=== PATIENT | male | born 1970 | race Caucasian/White ===

== ENCOUNTER 2024-03-19 11:51 | Outpatient (REF) | payer BC, SELFPAY | END 2024-03-19 11:52 | disposition home or self-care (01) | LOC: HO.BBR 11:51 | PROVIDERS: PCP Internal Medicine; Visit Provider Internal Medicine Gastroenterology | DX: Z13.89 Encounter for screening for other disorder (principal) ==

== ENCOUNTER 2024-03-26 15:29 | Outpatient (REF) | payer BC, SELFPAY | END 2024-03-26 15:30 | disposition home or self-care (01) | LOC: HO.BBR 15:29 | PROVIDERS: PCP Internal Medicine; Visit Provider Internal Medicine Gastroenterology | DX: Z13.89 Encounter for screening for other disorder (principal) ==

== ENCOUNTER 2024-04-02 15:17 | Outpatient (REF) | payer BC, SELFPAY ==
--- OUTSIDE RECORDS SUMMARY | 2024-04-02 19:07 | XMS_ITS | Encounter Summary ---
Author Organization [facility] Address [address] [place] [address] Care Team Providers Care Air Quality Chemist Name Role Phone Vickie Monte Primary Care Provider Encounter Details Date Type Department Care Team (Late st Contact Info) Description 03/19/2024 Telephone Gastroenterology - [address] [place] [phone] Zandra Lay MA Social History Tobacco Use Types Packs/Day Years Used Date Smoking Tobacco: Never Smokeless Tobacco: Never Alcohol Use Standard Drinks/Week Comments Yes 0 (1 standard drink = 0.6 oz pur e alcohol) occasional Sex and Gender Information Value Date Recorded Sex Assigned at Not on file Gender Identity Not on file Sexual Orientation Not on file Job Start Date Occupation Industry Not on file Not on file Not on file documented as of this encounter Progress Notes * Zandra Lay MA - 03/19/2024 10:55 AM EST [facility] BLOOD BANK NEEDS GENETIC TESTING RESULTS FAX# [phone] PHONE# [phone] APPT TODAY AT NOON AND WHAT DOES Q O W ? MEAN As a freqency? documented in this encounter Plan of Treatment Upcoming Encounters Date Type Department Care Team (Late st Contact Info) Description 04/16/2024 3:20 PM EST Office Visit Gastroenterology - [address] [place] [phone] Karla Leung PA [address] [place] [address] documented as of this encounter Visit Diagnoses Not on filedocumented in this encounter Care Teams Air Quality Chemist Relationship Specialty Start Date End Date Vickie Monte PA [facility]. [address] [place] [address] PCP - General Physician System Operator 01/29/24 documented as of this encounter
--- OUTSIDE RECORDS SUMMARY | 2024-04-02 19:07 | XMS_ITS | Encounter Summary ---
Author Organization [facility] Address [address] [place] [address] Care Team Providers Care Binding End Stitcher Name Role Phone Vickie Monte Primary Care Provider Encounter Details Date Type Department Care Team (Late st Contact Info) Description 03/17/2024 Telephone Gastroenterology - [address] [place] [phone] Mehdi Blanc MD [address] [place] [address] Social History Tobacco Use Types Packs/Day Years [...] Progress Notes * Zandra Lay MA - 03/18/2024 9:45 AM EST [facility] blood bank says the freqency is missing,they can't write it in.[email or web address] appt tomarrow phone [phone] * Ángela Dorantes - 03/17/2024 3:59 PM EST PT SCHEDULED FOR THERAPEUTIC PHLEBOTOMY 03/19/24, [facility] NEEDS ORDER FIXED AND FAXED BACK OVER, IT'S MISSING THE DATE. documented in this encounter Plan of Treatment Upcoming Encounters Date Type Department Care Team (Late st Contact Info) Description 04/16/2024 3:20 PM EST Office Visit Gastroenterology - [address] [place] [address] Karla Leung PA [address] [place] [address] documented as of this encounter Visit Diagnoses Not on filedocumented in this encounter Care Teams Binding End Stitcher Relationship Specialty Start Date End Date Vickie Monte PA [facility] [address] [place] [address] PCP - General Physician Electric Meter Setter 01/29/24 documented as of this encounter
--- OUTSIDE RECORDS SUMMARY | 2024-04-02 19:07 | XMS_ITS | Clinical Summary ---
Author Organization [facility] Address [address] [place] [address] Care Team Providers Care Accounting Tutor Name Role Phone Larry Marin MD Primary Care Provider [phone] Allergies No known active allergies Medications Medication Sig Dispensed Refills Start Date End Date Status fluticasone (FLONASE) 50 MCG/ACT nasal spray spray/apply 1 spray in each nostril daily. 0 Active Multiple Vitamins-Minerals (MULTIVITAMIN ADULT PO) Take by mouth daily. 0 Active loratadine (CLARITIN) 10 MG tablet Take 10 mg by mouth daily. 0 Active Chorionic Gonadotropin (NOVAREL) 5000 units SOLR Inject into the muscle every 4 days. 0 Active esomeprazole (NexIUM) capsule 20 mg Take 20 mg by mouth every morning before breakfast. 0 Active Social History Tobacco Use Types Packs/Day Years Used Date Smoking Tobacco: Never Smokeless Tobacco: Never Alcohol Use Standard Drinks/Week Comments Yes 0 (1 standard drink = 0.6 oz pur e alcohol) Sex and Gender Information Value Date Recorded Sex Assigned at Not on file Gender Identity Not on file Sexual Orientation Not on file Last Filed Vital Signs Vital Sign Reading Time Taken Comments Blood Pressure 148/102 04/23/2019 3:42 PM EST Pulse 89 04/23/2019 3:42 PM EST Temperature 36.3 ??C (97.3 ??F) 04/23/2019 3:42 PM ES T Respiratory Rate - - Oxygen Saturation - - Inhaled Oxygen Concentration - - Weight 86.5 kg (190 lb 9.6 oz) 04/23/2019 3:42 P M EST Height 177.8 cm (5' 10 ) 04/23/2019 3:42 PM EST Body Mass Index 27.35 04/23/2019 3:42 PM EST Plan of Treatment Health Maintenance Due Date Last Done Comments Hepatitis B Vaccines (1 of 3 - 3-dose series) 1971 Hepatitis C Screening 1971 COVID-19 Vaccine (#1) 1971 Depression Screening 1983 Preventative Health Evaluation 1989 DTap / Tdap / Td (1 - Tdap) 1990 Colon Cancer Screening (Colonoscopy) 2016 Shingrix-Zoster Vaccine (1 of 2) 2021 Influenza Vaccine (#1) 2023 Pneumococcal Vaccine Aged Out No long er eligible based on patient's age to complete this topic RSV Ped < 20 months Aged Out No longe r eligible based on patient's age to complete this topic Care Teams Accounting Tutor Relationship Specialty Start Date End Date Larry Marin MD [address] [place] [address] PCP - General Internal Medicine 04/23/19
--- OUTSIDE RECORDS SUMMARY | 2024-04-02 19:07 | XMS_ITS | Clinical Summary ---
Author Organization [facility] Address [address] [place] [address] Care Team Providers Care Pediatric Critical Care Nurse Name Role Phone Unavailable Primary Care Provider Unavailabl e Social History Tobacco Use Types Packs/Day Years Used Date Smoking Tobacco: Never Assessed Sex and Gender Information Value Date Recorded Sex Assigned at Not on file Gender Identity Not on file Sexual Orientation Not on file Plan of Treatment Health Maintenance Due Date Last Done Comments Hepatitis C Virus Screening 1971 HIV Screening 1984 DTaP/Tdap/Td Vaccines (1 - Tdap) 1990 Hepatitis B Vaccines (1 of 3 - 19+ 3-dose series) 1990 Pneumococcal Vaccines 50+ (1 of 1 - PCV) 2021 Zoster (Shingles) Vaccine (1 of 2) 2021 COVID-19 Vaccine ( - 2023-2 5 season) 2023 Pneumococcal Vaccine: Pediat deon (0-5 Years) and At-Risk Patients (6 to 49 Years) Aged Out No longer eligible b ased on patient's age to complete this topic
--- OUTSIDE RECORDS SUMMARY | 2024-04-02 19:07 | XMS_ITS | Clinical Summary ---
Author Organization [facility] Address [address] [place] [address] Phone Care Team Providers Care Nutritional Chemist Name Role Phone Vickie Monte Primary Care Provider Allergies No known active allergies Medications Medication Sig Dispensed Refills Start Date End Date Status loratadine (CLARITIN) 10 mg tablet Take 1 tablet (10 mg total) by mouth. Active fluticasone propionate (FLONASE) 50 mcg/actuation nasal spray 1 spray. Active atorvastatin (LIPITOR) 10 mg tablet Take 1 tablet (10 mg total) by mouth 1 (one) time each day. for 30 days Active pantoprazole (PROTONIX) 40 mg EC tabletIndications:Epi gastric discomfort Take 1 tablet (40 mg total) by mouth 1 (one) time each day. Do not crush, chew, or split. 90 each 3 02/13/2024 02/12/2025 Active Active Problems Problem Noted Date Diagnosed Date Hereditary hemochromatosis 02/13/2024 Assessment & Plan (02/13/2024 4:00 PM EST): Will monitor labs Phlebotomy as needed. Orders Placed This Encounter Procedures CBC and differential Standing Status: Future Number of Occurrences: 1 Standing Expiration Date: 02/12/2025 Comprehensive metabolic panel Standing Status: Future Number of Occurrences: 1 Standing Expiration Date: 02/12/2025 Ferritin Standing Status: Future Number of Occurrences: 1 Standing Expiration Date: 02/12/2025 Iron and TIBC Standing Status: Future Number of Occurrences: 1 Standing Expiration Date: 02/12/2025 Gastroesophageal reflux disease without esophagi tis 02/13/2024 Encounters Date Type Department Care Team Description 03/19/2024 Telephone Gastroenterology - [address] [address] Zandra Lay MA 03/17/2024 Telephone Gastroenterology - [address] [phone] Mehdi Blanc MD 03/13/2024 Telephone Gastroenterology - [address] [phone] Karla Leung PA 02/13/2024 3:00 PM EST Office Visit Gastroenterology - [address] [phone] Karla Leung PA Epigastric discomfort (Primary Dx); Hereditary hemochromatosis (CMS/HCC) from Last 3 Months Surgical History Surgery Date Site/Laterality Comments NASAL RECONSTRUCTION 1988 & 1999 PROCEDURE:NASAL RECONSTRUCTION ADENOIDECTOMY 1979 PROCEDURE:ADENOIDECTOMY ESOPHAGOGASTRODUODENOSCOPY 01/02/2019 - 01/31/2019 COLONOSCOPY 10/11/2021 TA x 1 recall 5 years 10/28 Medical History Medical History Date Comments Hemochromatosis DX:Hemochromatos is Family History Medical History Relation Name Comments Prostate cancer Father Colon cancer Neg Hx Relation Name Status Comments Father Social History Tobacco Use Types Packs/Day Years [...] file Not on file Not on file Obstetrics History Last Filed Vital Signs Vital Sign Reading Time Taken Comments Blood Pressure - - Pulse - - Temperature - - Respiratory Rate - - Oxygen Saturation - - Inhaled Oxygen Concentration - - Weight 84.8 kg (187 lb) 02/13/2024 2:50 PM EST Height 177.8 cm (5' 10 ) 02/13/2024 2:50 PM EST Body Mass Index 26.83 02/13/2024 2:50 PM EST Plan of Treatment Upcoming Encounters Date Type Department Care Team (Late st Contact Info) Description 04/16/2024 3:20 PM EST Office Visit Gastroenterology - [address] [phone] Karla Leung PA [address] [address] Health Maintenance Due Date Last Done Comments Hepatitis B Vaccines (1 of 3 - 19+ 3-dose series) 1990 Zoster Vaccines (1 of 2) 2021 COVID-19 Vaccine (2 - 2023-2 5 season) 2023 01/14/2021 Cholesterol Screening (Lipid Panel) 01/29/2024 Depression Screening 01/29/2024 HIV Screening 01/29/2024 Hepatitis C Screening 01/29/2024 Social Influencers of Health Screening 01/29/2024 Colorectal Cancer Screening: Colonoscopy 10/12/2031 10/11/2021, 01/22/2019 DTaP,Tdap,and Td Vaccines (2 - Td or Tdap) 02/05/2034 02/06/2024 Influenza Vaccine Completed 02/06/2024, 01/04/2022 HIB Vaccines Aged Out No longer eligi ble based on patient's age to complete this topic HPV Vaccines Aged Out No longer eligi ble based on patient's age to complete this topic Hepatitis A Vaccines Aged Out No long er eligible based on patient's age to complete this topic IPV Vaccines Aged Out No longer eligi ble based on patient's age to complete this topic MMR Vaccines Aged Out No longer eligi ble based on patient's age to complete this topic Meningococcal ACWY Vaccine Aged Out N o longer eligible based on patient's age to complete this topic Pneumococcal Vaccine: Pediatrics (0 to 5 Years) and At-Risk Patients (6 to 64 Years) Aged Out No longer eligible b ased on patient's age to complete this topic RSV Immunization Patients Under 20 months Aged Out No longer eligible b ased on patient's age to complete this topic Varicella Vaccines Aged Out No longer eligible based on patient's age to complete this topic Procedures Procedure Name Priority Date/Time Associated Diagnosis Comments EXTERNAL CLINICAL LAB 03/27/2024 EXTERNAL CLINICAL LAB 03/20/2024 EXTERNAL CLINICAL LAB 03/13/2024 COLONOSCOPY Routine 10/11/2021 12:39 PM EDT from Last 3 Months or Most Recently Relevant to Health Maintenance Results * External clinical lab (03/27/2024) Only the most recent of3 resultswithin the time period is included. Provider [facility] BLOOD ORDERA BLES * COLONOSCOPY (10/11/2021 12:39 PM EDT) Anatomical Region Laterality Modality Endoscopy Historical Provider GI~PROCEDURE RICARDO DAMON from Last 3 Months or Most Recently Relevant to Health Maintenance Care Teams Nutritional Chemist Relationship Specialty Start Date End Date Vickie Monte PA [facility] [address] [place] [address] PCP - General Physician Cabin Outfitter 01/29/24
--- OUTSIDE RECORDS SUMMARY | 2024-04-02 19:07 | XMS_ITS | Encounter Summary ---
Author Organization [facility] Address [address] [place] [address] Care Team Providers Care Ict Help Desk Technician Name Role Phone Vickie Monte Primary Care Provider Encounter Details Date Type Department Care Team (Late st Contact Info) Description 03/13/2024 Telephone Gastroenterology - [address] [place] [phone] Karla Leung PA [address] [place] [address] Social History Tobacco Use Types Packs/Day Years [...] as of this encounter Progress Notes * French Hendrickson MA - 03/17/2024 12:19 PM EST SPOKE TO PT FAXED ORDER FOR PHLEBOTOMIES TO [facility]. HE WILL CALL THERE AND ARRANGE * SHANKAR Alvarez - 03/13/2024 12:23 PM EST Contacted patient, ferritin elevated. Last phlebotomy a long time ago , will need to restart at every other week with [facility]. Taper based on labs. Patient aware. documented in this encounter Plan of Treatment Upcoming Encounters Date Type Department Care Team (Late st Contact Info) Description 04/16/2024 3:20 PM EST Office Visit Gastroenterology - [address] [place] [address] Karla Leung PA [address] [place] [address] documented as of this encounter Visit Diagnoses Not on filedocumented in this encounter Care Teams Ict Help Desk Technician Relationship Specialty Start Date End Date Vickie Monte PA [facility] [address] [place] [address] PCP - General Physician Tape Sewer 01/29/24 documented as of this encounter
== END 2024-04-02 15:18 | disposition home or self-care (01) ==
LOC: HO.BBR 15:17
PROVIDERS: PCP Internal Medicine; Visit Provider Internal Medicine Gastroenterology
DX: Z13.89 Encounter for screening for other disorder (principal)

== ENCOUNTER 2024-04-15 12:34 | Outpatient (REF) | payer BC, SELFPAY ==
--- OUTSIDE RECORDS SUMMARY | 2024-04-15 14:01 | XMS_ITS | Encounter Summary ---
Author Organization [facility] Address [address] [place] [address] Care Team Providers Care Cooker Sulfate Name Role Phone Vickie Monte Primary Care Provider Encounter Details Date Type Department Care Team (Late st Contact Info) Description 03/19/2024 Telephone Gastroenterology - [address] [place] [phone] Zandra Lay MA Social History Tobacco Use Types Packs/Day Years Used Date Smoking Tobacco: Never Smokeless Tobacco: Never Alcohol Use Standard Drinks/Week Comments Yes 0 (1 standard drink = 0.6 oz pur e alcohol) occasional Sex and Gender Information Value Date Recorded Sex Assigned at Not on file Legal Sex Male 2:16 PM EST Gender Identity Not on file Sexual Orientation Not on file documented as of this encounter Progress Notes * Zandra Lay MA - 03/19/2024 10:55 AM EST [facility] BLOOD BANK NEEDS GENETIC TESTING RESULTS FAX# [phone] PHONE# [phone] APPT TODAY AT NOON AND WHAT DOES Q O W ? MEAN As a freqency? documented in this encounter Plan of Treatment Upcoming Encounters Date Type Department Care Team (Late st Contact Info) Description 04/16/2024 3:20 PM EST Office Visit Gastroenterology - [address] [place] [phone] Karla Leung PA [address] [place] [address] documented as of this encounter Visit Diagnoses Not on filedocumented in this encounter Care Teams Cooker Sulfate Relationship Specialty Start Date End Date Vickie Monte PA [facility]. [address] [place] [address] PCP - General Physician Flue Tile Press Operator 01/29/24 documented as of this encounter
--- OUTSIDE RECORDS SUMMARY | 2024-04-15 14:01 | XMS_ITS | Clinical Summary ---
Author Organization [facility] Address [address] [place] [address] Care Team Providers Care Wildlife Ecologist Name Role Phone Unavailable Primary Care Provider [...]
--- OUTSIDE RECORDS SUMMARY | 2024-04-15 14:01 | XMS_ITS | Clinical Summary ---
Author Organization [facility] 299 [facility] Address [address] [place] [address] Phone Care Team Providers Care Biofuels Operations Manager Name Role Phone Vcikie Monte Primary Care Provider Allergies No known active allergies Medications loratadine (CLARITIN) 10 mg tablet Take 1 tablet (10 mg total) by mouth. Active fluticasone propionate (FLONASE) 50 mcg/actuation nasal spray 1 spray. Active atorvastatin (LIPITOR) 10 mg tablet Take 1 tablet (10 mg total) by mouth 1 (one) time each day. for 30 days Active pantoprazole (PROTONIX) 40 mg EC tabletIndication s:Epigastric discomfort Take 1 tablet (40 mg total) by mouth 1 (one) time each day. Do not crush, chew, or split. 90 each 3 02/13/2024 Active Active Problems Problem Noted Date Diagnosed [...] Team Description 03/19/2024 Telephone Gastroenterology - [address] [phone] Zandra Lay MA 03/17/2024 Telephone Gastroenterology - [address] [phone] Mehdi Blanc MD 03/13/2024 Telephone Gastroenterology - [address] [phone] Kalra Leung PA 02/13/2024 3:00 PM EST Office Visit Gastroenterology - [address] [phone] Karla Leung PA Epigastric discomfort (Primary Dx); [...] on file Sexual Orientation Not on file Obstetrics History Last Filed [...] PM EST Office Visit Gastroenterology - [address] [phone] Karla Leung PA [address] [address] Health Maintenance Due Date Last Done Comments Hepatitis B Vaccines (1 of 3 - 19+ 3-dose series) 1990 Pneumococcal Vaccine: 50+ Years (1 of 1 - PCV) 2021 Zoster Vaccines (1 of 2) 2021 COVID-19 [...] patient's age to complete this topic Meningococcal B Vacine Aged Out No lo nger eligible based on patient's age to complete [...] Date/Time Associated Diagnosis Comments EXTERNAL CLINICAL LAB 04/03/2024 EXTERNAL CLINICAL LAB 03/27/2024 EXTERNAL CLINICAL LAB 03/20/2024 EXTERNAL CLINICAL LAB 03/13/2024 COLONOSCOPY Routine 10/11/2021 12:39 PM EDT from Last 3 Months or Most Recently Relevant to Health Maintenance Results * External clinical lab (04/03/2024) Only the most recent of4 resultswithin the time period is included. us Provider [facility] BLOOD ORDERABLES Fin al Result * COLONOSCOPY (10/11/2021 12:39 PM EDT) Anatomical Region Laterality Modality Endoscopy Historical Provider GI~PROCEDURE ORDERABLES F inal Result from Last 3 Months or Most Recently Relevant to Health Maintenance Insurance [facility] Care Teams Biofuels Operations Manager Relationship Specialty Start Date End Date Vickie Monte PA [facility] [address] [place] [address] PCP - General Physician Bag Shop Worker 01/29/24
--- OUTSIDE RECORDS SUMMARY | 2024-04-15 14:01 | XMS_ITS | Clinical Summary ---
Author Organization [facility] Address [address] [place] [address] Care Team Providers Care Speed Belt Sander Tender Name Role Phone Larry Marin MD Primary Care Provider [phone] Allergies No known active allergies Medications Medication [...] age to complete this topic Care Teams Speed Belt Sander Tender Relationship Specialty Start Date End Date Larry Marin MD [address] [place] [address] PCP - General Internal Medicine 04/23/19
--- OUTSIDE RECORDS SUMMARY | 2024-04-15 14:01 | XMS_ITS | Encounter Summary ---
Author Organization [facility] Address [address] [place] [address] Care Team Providers Care Trouble Shooter Name Role Phone Vickie Monte Primary Care Provider Encounter Details Date Type Department Care Team (Late st Contact Info) Description 03/13/2024 Telephone Gastroenterology - [address] [place] [phone] Karla Leung PA [address] [place] [address] Social History Tobacco Use Types Packs/Day Years [...] TO PT FAXED ORDER FOR PHLEBOTOMIES TO [facility]. HE WILL CALL THERE AND ARRANGE * SHANKAR Alvarez - 03/13/2024 12:23 PM EST Contacted patient, ferritin elevated. Last phlebotomy a long time ago , will need to restart at every other week with [facility]. Taper based on labs. Patient aware. documented in this encounter Plan of Treatment Upcoming Encounters Date Type Department Care Team (Late st Contact Info) Description 04/16/2024 3:20 PM EST Office Visit Gastroenterology - [address] [place] [address] Karla Leung PA [address] [place] [address] documented as of this encounter Visit Diagnoses Not on filedocumented in this encounter Care Teams Trouble Shooter Relationship Specialty Start Date End Date Vickie Monte PA [facility] [address] [place] [address] PCP - General Physician Hookman 01/29/24 documented as of this encounter
--- OUTSIDE RECORDS SUMMARY | 2024-04-15 14:01 | XMS_ITS | Encounter Summary ---
Author Organization [facility] Address [address] [place] [address] Care Team Providers Care Virtual Assistant For Advertisers Name Role Phone Vickie Monte Primary Care Provider Encounter Details Date Type Department Care Team (Late st Contact Info) Description 03/17/2024 Telephone Gastroenterology - [address] [facility] [address] [place] [phone] Mehdi Blanc MD [address] [place] [address] Social History Tobacco Use Types Packs/Day Years [...] Lay MA - 03/18/2024 9:45 AM EST [facility] blood bank says the freqency is missing,they can't write it in.[phone] appt tomarrow phone [phone] * Ángela Dorantes - 03/17/2024 3:59 PM EST PT SCHEDULED FOR THERAPEUTIC PHLEBOTOMY 03/19/24, [place] NEEDS ORDER FIXED AND FAXED BACK OVER, IT'S MISSING THE DATE. documented in this encounter Plan of Treatment Upcoming Encounters Date Type Department Care Team (Late st Contact Info) Description 04/16/2024 3:20 PM EST Office Visit Gastroenterology - [address] [facility] [address] [place] [address] Karla Leung PA [address] [place] [address] documented as of this encounter Visit Diagnoses Not on filedocumented in this encounter Care Teams Virtual Assistant For Advertisers Relationship Specialty Start Date End Date Vickie Monte PA [facility] [address] [place] [address] PCP - General Physician Improvement Specialist 01/29/24 documented as of this encounter
== END 2024-04-15 12:35 | disposition home or self-care (01) ==
LOC: HO.BBR 12:34
PROVIDERS: PCP Internal Medicine; Visit Provider Internal Medicine Gastroenterology
DX: Z13.89 Encounter for screening for other disorder (principal)

== ENCOUNTER 2024-05-07 15:17 | Outpatient (REF) | payer BC, SELFPAY ==
--- OUTSIDE RECORDS SUMMARY | 2024-05-07 18:47 | XMS_ITS | Clinical Summary ---
Author Organization [facility] Address [address] [place] [address] Care Team Providers Care Occupational Therapist Per Diem Name Role Phone Larry Marin MD Primary Care Provider [phone] Allergies No known active allergies Medications Medication [...] age to complete this topic Care Teams Occupational Therapist Per Diem Relationship Specialty Start Date End Date Larry Marin MD [address] [place] [address] PCP - General Internal Medicine 04/23/19
--- OUTSIDE RECORDS SUMMARY | 2024-05-07 18:47 | XMS_ITS | Clinical Summary ---
Author Organization [facility] 299 [facility] Address [address] [place] [address] Phone Care Team Providers Care Cable Spooler Name Role Phone Vickie Monte Primary Care [...] chew, or split. 90 each 3 02/13/2024 5 Active Active Problems Problem Noted Date Diagnosed [...] Team Description 03/19/2024 Telephone Gastroenterology - [address] [phone] Zandra Lay MA 03/17/2024 Telephone Gastroenterology - [address] [phone] Mehdi Blanc MD 03/13/2024 Telephone Gastroenterology - [address] [phone] Karla Leung PA 02/13/2024 3:00 PM EST Office Visit Gastroenterology - [address] [phone] Karla Leung PA Epigastric discomfort (Primary Dx); [...] Care Team (Late st Contact Info) Description 05/13/2024 3:20 PM EDT Office Visit Gastroenterology - [address] [phone] Karla Leung PA 299 [facility] [address] [place] [address] Health Maintenance Due Date Last Done Comments [...] Date/Time Associated Diagnosis Comments EXTERNAL CLINICAL LAB 04/16/2024 EXTERNAL CLINICAL LAB 04/03/2024 EXTERNAL CLINICAL LAB 03/27/2024 EXTERNAL CLINICAL LAB 03/20/2024 EXTERNAL CLINICAL LAB 03/13/2024 COLONOSCOPY Routine 10/11/2021 12:39 PM EDT from Last 3 Months or Most Recently Relevant to Health Maintenance Results * External clinical lab (04/16/2024) Only the most recent of5 resultswithin the time period is included. us Provider [facility] BLOOD ORDERABLES Fin al Result * COLONOSCOPY (10/11/2021 12:39 PM EDT) Anatomical Region Laterality Modality Endoscopy [facility] Provider GI~PROCEDURE ORDERABLES F inal Result from Last 3 Months or Most Recently Relevant to Health Maintenance Insurance [facility] Care Teams Cable Spooler Relationship Specialty Start Date End Date Vickie Monte PA [facility] [address] [place] [address] PCP - General Physician Dynamometer Mechanic 01/29/24
--- OUTSIDE RECORDS SUMMARY | 2024-05-07 18:47 | XMS_ITS | Clinical Summary ---
Author Organization [facility] Address [address] [place] [address] Care Team Providers Care Forger Helper Name Role Phone Unavailable Primary Care Provider [...]
== END 2024-05-07 15:18 | disposition home or self-care (01) ==
LOC: HO.BBR 15:17
PROVIDERS: PCP Internal Medicine; Visit Provider Internal Medicine Gastroenterology
DX: Z13.89 Encounter for screening for other disorder (principal)

== ENCOUNTER 2024-06-04 15:26 | Outpatient (REF) | payer BC, SELFPAY ==
--- OUTSIDE RECORDS SUMMARY | 2024-06-04 16:48 | XMS_ITS ---
Author Name [facility] Organization Unknown Care Team Organization Name Specialty Phone Email Start Date End Da te Office of the In Room Dining Server (OSC) 01/17/2024
--- OUTSIDE RECORDS SUMMARY | 2024-06-04 16:48 | XMS_ITS | Clinical Summary ---
Author Organization [facility] Address [address] [place] [address] Care Team Providers Care Freight Forwarder Name Role Phone Unavailable Primary Care Provider [...]
--- OUTSIDE RECORDS SUMMARY | 2024-06-04 16:48 | XMS_ITS | Clinical Summary ---
Author Organization [facility] 299 [facility] Address [address] [place] [address] Phone Care Team Providers Care Manager Clinical Name Role Phone Vickie Monte Primary Care Provider [phone]- [phone] Allergies Active Allergy Reactions Criticality Noted Date Comments Bee Venom Protein (Honey Bee) Anaphylaxis High 05/13 [place] Anaphylaxis High 05/13/2024 Medications loratadine (CLARITIN) 10 mg tablet Take [...] Date Hereditary hemochromatosis 02/13/2024 Assessment & Plan (05/13/2024 5:22 PM EDT): Likely decrease phlebotomy to once monthly pending labwork. Reordering today with further recommendations pending ferritin level, target at or less than 50. Orders: CBC and differential; Future Iron and TIBC; Future Hepatic function panel; Future Ferritin; Future Assessment & Plan (02/13/2024 4:00 PM EST): [...] Encounters Date Type Department Care Team Description 05/13/2024 3:20 PM EDT Office Visit Gastroenterology - [address] [place] [address] Karla Leung PA Hereditary hemochromatosis (CMS/HCC) (Primary Dx); Epigastric pain 05/13/2024 Telephone Gastroenterology - [address] [place] [phone] Mehdi Blanc MD 03/19/2024 Telephone Gastroenterology - 299 [address] [place] [phone] Zandra Lay MA 03/17/2024 Telephone Gastroenterology - 299 [address] [place] [phone] Mehdi Blanc MD 03/13/2024 Telephone Gastroenterology - 299 [address] [place] [phone] Karla Leung PA from Last 3 Months Surgical History Surgery [...] Information Value Date Recorded Sex Assigned at Male 05/20/2024 8:32 AM EDT Legal Sex Male 2:16 PM EST Gender Identity Male 05/20/2024 8:32 AM EDT Sexual Orientation Straight 05/20/2024 8: 32 AM EDT Obstetrics History Last Filed Vital Signs Vital Sign Reading Time Taken Comments Blood Pressure - - Pulse - - Temperature - - Respiratory Rate - - Oxygen Saturation - - Inhaled Oxygen Concentration - - Weight 87.1 kg (192 lb) 05/13/2024 3:18 PM EDT Height 177.8 cm (5' 10 ) 05/13/2024 3:18 PM EDT Body Mass Index 27.55 05/13/2024 3:18 PM EDT Plan of Treatment Upcoming Encounters Date Type Department Care Team (Late st Contact Info) Description 06/24/2024 8:15 AM EDT Appointment [facility] Xray [address] [place] [phone] 09/16/2024 3:10 PM EDT Office Visit Gastroenterology - 299 [address] 299 [facility] [address] [place] [phone] Karla Leung PA 299 [facility] [address] [address] Health Maintenance Due Date Last Done Comments [...] Date/Time Associated Diagnosis Comments EXTERNAL CLINICAL LAB 05/11/2024 EXTERNAL CLINICAL LAB 05/08/2024 EXTERNAL CLINICAL LAB 04/16/2024 EXTERNAL CLINICAL LAB 04/03/2024 EXTERNAL CLINICAL LAB 03/27/2024 EXTERNAL CLINICAL LAB 03/20/2024 EXTERNAL CLINICAL LAB 03/13/2024 COLONOSCOPY Routine 10/11/2021 12:39 PM EDT from Last 3 Months or Most Recently Relevant to Health Maintenance Results * External clinical lab (05/11/2024) Only the most recent of7 resultswithin the time period is included. us Provider [facility] BLOOD ORDERABLES Fin al Result * COLONOSCOPY (10/11/2021 12:39 PM EDT) Anatomical Region Laterality Modality Endoscopy Historical Provider GI~PROCEDURE ORDERABLES F inal Result from Last 3 Months or Most Recently Relevant to Health Maintenance Insurance [facility] Care Teams Manager Clinical Relationship Specialty Start Date End Date Vickie Monte PA [facility] [address] [place] [address] PCP - General Physician Belt And Link Assembly Supervisor 01/29/24
--- OUTSIDE RECORDS SUMMARY | 2024-06-04 16:49 | XMS_ITS | Clinical Summary ---
Author Organization [facility] Address [address] [place] [address] Care Team Providers Care Math Professor Name Role Phone Larry Marin MD Primary Care Provider [phone] Allergies No known active allergies Medications Medication [...] age to complete this topic Care Teams Math Professor Relationship Specialty Start Date End Date Larry Marin MD [address] [place] [address] PCP - General Internal Medicine 04/23/19
== END 2024-06-04 15:27 | disposition home or self-care (01) ==
LOC: HO.BBR 15:26
PROVIDERS: PCP Internal Medicine; Visit Provider Internal Medicine Gastroenterology
DX: Z13.89 Encounter for screening for other disorder (principal)

== ENCOUNTER 2024-06-18 15:25 | Outpatient (REF) | payer BC, SELFPAY ==
--- OUTSIDE RECORDS SUMMARY | 2024-06-18 18:04 | XMS_ITS | Clinical Summary ---
Author Organization [facility] Address [address] [place] [address] Care Team Providers Care Trout Farmer Name Role Phone Larry Marin MD Primary Care Provider [phone] Allergies No known active allergies Medications Medication [...] age to complete this topic Care Teams Trout Farmer Relationship Specialty Start Date End Date Larry Marin MD [address] [place] [address] PCP - General Internal Medicine 04/23/19
--- OUTSIDE RECORDS SUMMARY | 2024-06-18 18:04 | XMS_ITS | Clinical Summary ---
Author Organization [facility] 299 [facility] Address [address] [place] [address] Phone Care Team Providers Care Harness Inspector Name Role Phone Vickie Monte Primary Care Provider [phone] Allergies Active Allergy Reactions Criticality Noted Date [...] Problem Noted Date Diagnosed Date Hereditary hemochromatosis (CMS/HCC V24) 024 Assessment & Plan (05/13/2024 5:22 PM EDT): [...] Luisa [address] [place] [address] Karla Leung PA Hereditary hemochromatosis (CMS/HCC V24) (Primary Dx); Epigastric pain 05/13/2024 Telephone Gastroenterology - 299 [address] [place] [phone] Mehdi Blanc MD from Last 3 Months Surgical History Surgery [...] Care Team (Late st Contact Info) Description 08/20/2024 8:30 AM EDT Appointment [facility] Xray [address] [place] [phone] 09/16/2024 3:10 PM EDT Office Visit Gastroenterology - 299 [address] 299 [facility] [address] [place] [phone] Karla Leung PA [address] [address] Health Maintenance Due Date Last Done Comments [...] age to complete this topic Meningococcal B Vaccine Aged Out No l onger eligible based on patient's age to complete [...] Date/Time Associated Diagnosis Comments EXTERNAL CLINICAL LAB 06/05/2024 EXTERNAL CLINICAL LAB 05/11/2024 EXTERNAL CLINICAL LAB 05/08/2024 EXTERNAL CLINICAL LAB 04/16/2024 EXTERNAL CLINICAL LAB 04/03/2024 EXTERNAL CLINICAL LAB 03/27/2024 EXTERNAL CLINICAL LAB 03/20/2024 COLONOSCOPY Routine 10/11/2021 12:39 PM EDT from Last 3 Months or Most Recently Relevant to Health Maintenance Results * External clinical lab (06/05/2024) Only the most recent of7 resultswithin the time period is included. us Provider [facility] BLOOD ORDERABLES Fin al Result * COLONOSCOPY (10/11/2021 12:39 PM EDT) Anatomical Region Laterality Modality Endoscopy [facility] Provider GI~PROCEDURE ORDERABLES F inal Result from Last 3 Months or Most Recently Relevant to Health Maintenance Insurance [facility] Care Teams Harness Inspector Relationship Specialty Start Date End Date Vickie Monte PA [facility] [address] [place] [address] PCP - General Physician Senior Consultant 01/29/24
--- OUTSIDE RECORDS SUMMARY | 2024-06-18 18:04 | XMS_ITS | Clinical Summary ---
Author Organization [facility] Address [address] [place] [address] Care Team Providers Care Instructor Adjunct Pharmacy Technician Name Role Phone Unavailable Primary Care Provider Unavailabl e Social History Tobacco Use Types Packs/Day Years Used Date Smoking Tobacco: Never Assessed Sex and Gender Information Value Date Recorded Sex Assigned at Not on file Legal Sex Male 1:06 PM EDT Gender Identity Not on file Sexual Orientation [...]
== END 2024-06-18 15:26 | disposition home or self-care (01) ==
LOC: HO.BBR 15:25
PROVIDERS: PCP Internal Medicine; Visit Provider Internal Medicine Gastroenterology
DX: Z13.89 Encounter for screening for other disorder (principal)

== ENCOUNTER 2024-07-02 15:26 | Outpatient (REF) | payer BC, SELFPAY ==
--- OUTSIDE RECORDS SUMMARY | 2024-07-02 17:13 | XMS_ITS | Clinical Summary ---
Author Organization [facility] 299 [facility] Address [address] [place] [address] Phone Care Team Providers Care Commissioned Security Officer Name Role Phone Vickie Monte Primary Care Provider [phone] Allergies Active Allergy Reactions Criticality Noted Date [...] Luisa [address] [place] [address] Karla Leung PA Hereditary hemochromatosis (CMS/HCC V24) (Primary Dx); Epigastric pain 05/13/2024 Telephone Gastroenterology - 299 [address] [place] [phone] Mehdi Blanc MD from Last 3 Months [...] Info) Description 08/20/2024 8:30 AM EDT Appointment [facility] Xray [address] [place] [phone] 09/16/2024 3:10 PM EDT Office Visit Gastroenterology - 299 [address] 299 [facility] [address] [place] [phone] Karla Leung PA [address] [address] Health Maintenance Due Date Last Done Comments [...] Date/Time Associated Diagnosis Comments EXTERNAL CLINICAL LAB 06/22/2024 EXTERNAL CLINICAL LAB 06/19/2024 EXTERNAL CLINICAL LAB 06/05/2024 EXTERNAL CLINICAL LAB 05/11/2024 EXTERNAL CLINICAL LAB 05/08/2024 EXTERNAL CLINICAL LAB 04/16/2024 COLONOSCOPY Routine 10/11/2021 12:39 PM EDT from Last 3 Months or Most Recently Relevant to Health Maintenance Results * External clinical lab (06/22/2024) Only the most recent of6 resultswithin the time period is included. us Provider [facility] BLOOD ORDERABLES Fin al Result * COLONOSCOPY (10/11/2021 12:39 PM EDT) Anatomical Region Laterality Modality Endoscopy [facility] Provider GI~PROCEDURE ORDERABLES F inal Result from Last 3 Months or Most Recently Relevant to Health Maintenance Insurance [facility] Care Teams Commissioned Security Officer Relationship Specialty Start Date End Date Vickie Monte [facility] [address] [place] [address] PCP - General Physician Record Press Supervisor 01/29/24
--- OUTSIDE RECORDS SUMMARY | 2024-07-02 17:13 | XMS_ITS | Clinical Summary ---
Author Organization [facility] Address [address] [place] [address] Care Team Providers Care Instructor Watch Assembly Name Role Phone Larry Marin MD Primary Care Provider [phone] Allergies No known active allergies Medications Medication [...] age to complete this topic Care Teams Instructor Watch Assembly Relationship Specialty Start Date End Date Larry Marin MD [address] [place] [address] PCP - General Internal Medicine 04/23/19
--- OUTSIDE RECORDS SUMMARY | 2024-07-02 17:13 | XMS_ITS | Clinical Summary ---
Author Organization [facility] Address [address] [place] [address] Care Team Providers Care Child Support Investigator Name Role Phone Unavailable Primary Care Provider [...] (1 of 3 - 19+ 3-dose series) 03/04 Pneumococcal Vaccines 50+ (1 of 1 - PCV) 2021 Zoster (Shingles) Vaccine (1 of 2) 2021 COVID-19 Vaccine ( - 2023- season) 2023
== END 2024-07-02 15:27 | disposition home or self-care (01) ==
LOC: HO.BBR 15:26
PROVIDERS: PCP Internal Medicine; Visit Provider Internal Medicine Gastroenterology
DX: Z13.89 Encounter for screening for other disorder (principal)

== ENCOUNTER 2024-07-15 15:32 | Outpatient (REF) | payer BC, SELFPAY ==
--- OUTSIDE RECORDS SUMMARY | 2024-07-15 15:35 | XMS_ITS | Clinical Summary ---
Author Organization [facility] 299 [facility] Address [address] [place] [address] Phone Care Team Providers Care Seo Associate Name Role Phone Vickie Monte Primary Care Provider [phone] Allergies Active Allergy Reactions Criticality Noted Date [...] Luisa [address] [place] [address] Karla Leung PA Hereditary hemochromatosis (CMS/HCC V24) (Primary Dx); Epigastric pain 05/13/2024 Telephone Gastroenterology - 299 [address] [place] [phone] Mehdi Blanc MD from Last 3 Months [...] Info) Description 08/20/2024 8:30 AM EDT Appointment [facility] Xray [address] [place] [phone] 09/16/2024 3:10 PM EDT Office Visit Gastroenterology - 299 [address] 299 [facility] [address] [place] [phone] Karla Leung PA [address] [address] Health Maintenance Due Date Last Done Comments [...] CLINICAL LAB 05/11/2024 EXTERNAL CLINICAL LAB 05/08/2024 COLONOSCOPY Routine 10/11/2021 12:39 PM EDT from Last 3 Months or Most Recently Relevant to Health Maintenance Results * External clinical lab (06/22/2024) Only the most recent of5 resultswithin the time period is included. us Provider [facility] BLOOD ORDERABLES Fin al Result * COLONOSCOPY (10/11/2021 12:39 PM EDT) Anatomical Region Laterality Modality Endoscopy [facility] Provider GI~PROCEDURE ORDERABLES F inal Result from Last 3 Months or Most Recently Relevant to Health Maintenance Insurance [facility] Care Teams Seo Associate Relationship Specialty Start Date End Date [facility] [address] [place] [address] PCP - General Physician Nitrate Operator 01/29/24
--- OUTSIDE RECORDS SUMMARY | 2024-07-15 15:35 | XMS_ITS | Clinical Summary ---
Author Organization [facility] Address [address] [place] [address] Care Team Providers Care Mason Tender Restoration Labor Name Role Phone Unavailable Primary Care Provider [...]
--- OUTSIDE RECORDS SUMMARY | 2024-07-15 15:35 | XMS_ITS | Clinical Summary ---
Author Organization [facility] Address [address] [place] [address] Care Team Providers Care Metal Can Inspector Name Role Phone Larry Marin MD Primary Care Provider [phone] Allergies No known active allergies Medications Medication [...] age to complete this topic Care Teams Metal Can Inspector Relationship Specialty Start Date End Date Larry Marin MD [address] [place] [address] PCP - General Internal Medicine 04/23/19
== END 2024-07-15 15:33 | disposition home or self-care (01) ==
LOC: HO.BBR 15:32
PROVIDERS: PCP Internal Medicine; Visit Provider Internal Medicine Gastroenterology
DX: Z13.89 Encounter for screening for other disorder (principal)

== ENCOUNTER 2024-07-23 15:20 | Outpatient (REF) | payer BC, SELFPAY ==
--- OUTSIDE RECORDS SUMMARY | 2024-07-23 15:22 | XMS_ITS | Clinical Summary ---
Author Organization [facility] 299 [facility] Address [address] [place] [address] Phone Care Team Providers Care Infrastructure Tech Name Role Phone Vickie Monte Primary Care Provider [phone] Allergies Active Allergy Reactions Criticality Noted Date [...] Lu[address] [place] [address] Karla Leung PA Hereditary hemochromatosis (CMS/HCC V24) (Primary Dx); Epigastric pain 05/13/2024 Telephone Gastroenterology - 299 [address] [place] [phone] Mehdi Blanc MD from Last 3 Months [...] Info) Description 08/20/2024 8:30 AM EDT Appointment [facility] Xray [address] [place] [phone] 09/16/2024 3:10 PM EDT Office Visit Gastroenterology - 299 [address] 299 [facility] [address] [place] [phone] Karla Leung PA [address] [address] Health Maintenance Due Date Last Done Comments [...] Date/Time Associated Diagnosis Comments EXTERNAL CLINICAL LAB 07/16/2024 EXTERNAL CLINICAL LAB 06/22/2024 EXTERNAL CLINICAL LAB 06/19/2024 EXTERNAL CLINICAL LAB 06/05/2024 EXTERNAL CLINICAL LAB 05/11/2024 EXTERNAL CLINICAL LAB 05/08/2024 COLONOSCOPY Routine 10/11/2021 12:39 PM EDT from Last 3 Months or Most Recently Relevant to Health Maintenance Results * External clinical lab (07/16/2024) Only the most recent of6 resultswithin the time period is included. us Provider [facility] BLOOD ORDERABLES Fin al Result * COLONOSCOPY (10/11/2021 12:39 PM EDT) Anatomical Region Laterality Modality Endoscopy [facility] Provider GI~PROCEDURE ORDERABLES F inal Result from Last 3 Months or Most Recently Relevant to Health Maintenance Insurance [facility] Care Teams Infrastructure Tech Relationship Specialty Start Date End Date [facility]ick[facility] Monte [facility] [address] [place] [address] PCP - General Physician Staff Research Scientist 01/29/24
== END 2024-07-23 15:21 | disposition home or self-care (01) ==
LOC: HO.BBR 15:20
PROVIDERS: PCP Internal Medicine; Visit Provider Internal Medicine Gastroenterology
DX: Z13.89 Encounter for screening for other disorder (principal)

== ENCOUNTER 2024-08-05 15:24 | Outpatient (REF) | payer BC, SELFPAY ==
--- OUTSIDE RECORDS SUMMARY | 2024-08-05 15:35 | XMS_ITS | Clinical Summary ---
Author Organization [facility] 299 [facility] [place] [facility] Address [address] [place] [address] Phone Care Team Providers Care Blackener Name Role Phone Vickie Monte Primary Care Provider [phone] Allergies Active Allergy Reactions Criticality Noted Date [...] [address] [place] [address] Karla Leung PA Hereditary hemochromatosis (CMS/HCC V24) (Primary Dx); Epigastric pain 05/13/2024 Telephone Gastroenterology - 299 [address] [place] [phone] Mehdi Blanc MD from Last 3 Months [...] Info) Description 08/20/2024 8:30 AM EDT Appointment [facility] Xray [address] [place] [phone] 09/16/2024 3:10 PM EDT Office Visit Gastroenterology - 299 [address] 299 [facility] [address] [place] [phone] Karla Leung PA [address] [address] Health Maintenance Due Date Last Done Comments [...] Date/Time Associated Diagnosis Comments EXTERNAL CLINICAL LAB 07/23/2024 EXTERNAL CLINICAL LAB 07/23/2024 EXTERNAL CLINICAL LAB 07/16/2024 EXTERNAL CLINICAL LAB 06/22/2024 EXTERNAL CLINICAL LAB 06/19/2024 EXTERNAL CLINICAL LAB 06/05/2024 EXTERNAL CLINICAL LAB 05/11/2024 EXTERNAL CLINICAL LAB 05/08/2024 COLONOSCOPY Routine 10/11/2021 12:39 PM EDT from Last 3 Months or Most Recently Relevant to Health Maintenance Results * External clinical lab (07/23/2024) Only the most recent of8 resultswithin the time period is included. us Provider [facility] BLOOD ORDERABLES Fin al Result * COLONOSCOPY (10/11/2021 12:39 PM EDT) Anatomical Region Laterality Modality Endoscopy [facility] Provider GI~PROCEDURE ORDERABLES F inal Result from Last 3 Months or Most Recently Relevant to Health Maintenance Insurance [facility] Care Teams Blackener Relationship Specialty Start Date End Date Vickie Monte PA [facility] [address] [place] [address] PCP - General Physician Dining Room Coordinator 01/29/24
== END 2024-08-05 15:25 | disposition home or self-care (01) ==
LOC: HO.BBR 15:24
PROVIDERS: PCP Internal Medicine; Visit Provider Internal Medicine Gastroenterology
DX: Z13.89 Encounter for screening for other disorder (principal)

== ENCOUNTER 2024-08-27 15:42 | Outpatient (REF) | payer BC, SELFPAY | END 2024-08-27 15:43 | disposition home or self-care (01) | LOC: HO.BBR 15:42 | PROVIDERS: PCP Internal Medicine; Visit Provider Internal Medicine Gastroenterology | DX: Z13.89 Encounter for screening for other disorder (principal) ==

== ENCOUNTER 2024-11-19 15:27 | Outpatient (REF) | payer BC, SELFPAY ==
--- OUTSIDE RECORDS SUMMARY | 2024-11-19 16:53 | XMS_ITS | Clinical Summary ---
Author Organization [facility] Address [address] [place] [address] Care Team Providers Care Lumber Mover Name Role Phone Unavailable Primary Care Provider [...] Vaccine (1 of 2) 2021 COVID-19 Vaccine (1 - 2023- season) 2024
--- OUTSIDE RECORDS SUMMARY | 2024-11-19 16:53 | XMS_ITS | Clinical Summary ---
Author Organization [facility] Address [address] [place] [address] Care Team Providers Care Locum Tenens Psychiatrist Name Role Phone Larry Marin MD Primary Care Provider [phone] Allergies No known active allergies Medications Medication [...] 89 04/23/2019 3:42 PM EST Temperature 36.3 C (97.3 F) 04/23/2019 3:42 PM EST Respiratory Rate - - Oxygen Saturation - [...] (1 of 2) 2021 Influenza Vaccine (#1) 2024 Pneumococcal Vaccine Aged Out No long er eligible based on patient's age to complete this topic RSV Ped < 20 months Aged Out No longe r eligible based on patient's age to complete this topic Care Teams Locum Tenens Psychiatrist Relationship Specialty Start Date End Date Larry Marin MD [address] [place] [address] PCP - General Internal Medicine 04/23/19
--- OUTSIDE RECORDS SUMMARY | 2024-11-19 16:53 | XMS_ITS ---
Author Name [facility] Organization Unknown Care Team Organization Name Specialty Phone Email Start Date End Da te Office of the Investigative Writer (OSC) 01/17/2024
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
== END 2024-11-19 15:28 | disposition home or self-care (01) ==
LOC: HO.BBR 15:27
PROVIDERS: PCP Internal Medicine; Visit Provider Internal Medicine Gastroenterology
DX: Z13.89 Encounter for screening for other disorder (principal)

== ENCOUNTER 2025-01-14 15:23 | Outpatient (REF) | payer BC, SELFPAY ==
--- OUTSIDE RECORDS SUMMARY | 2025-01-14 18:30 | XMS_ITS | Clinical Summary ---
Author Organization [facility] [address] [facility] Address [address] [place] [address] Phone Care Team Providers Care Distillation Operator Helper Name Role Phone Vickie Monte Primary Care [...] Encounters Date Type Department Care Team Description 12/04/2024 9:47 AM EDT - 12/04/2024 11:59 PM EDT Hospital Encounter [facility] Ultrasound [address] [place] [address] Epigastric pain Discharge Disposition: Home or Self Care 12/04/2024 Results Follow-Up Gastroenterology - [address] [phone] Alondra Jones PA 11/11/2024 Telephone Gastroenterology - [address] [facility] [address] [address] Mehdi Blanc MD 11/03/2024 9:45 AM EDT Anesthesia Event [facility] Endoscopy [address] [place] [address] Chirag Mueller MD Pierce, Trudy A, CRNA 11/03/2024 9:26 AM EDT - 11/03/2024 11:59 PM EDT Hospital Encounter [facility] Endoscopy [address] [place] [address] Mehdi Blanc MD Pierce, Trudy A, CRNA Spencer, Mark A, MD Epigastric pain; Gastroesophageal reflux disease without esophagitis Discharge Disposition: Home or Self Care 10/20/2024 Telephone Gastroenterology - [address] [facility] [address] [place] [address] Mehdi Blanc MD from Last 3 Months [...] Safety Answer Date Record ed Physical Abuse Unrecognized value 11/03/2024 Verbal Abuse Unrecognized value 11/03/2024 Sex and Gender Information Value Date [...] Care Team (Late st Contact Info) Description 07/14/2025 3:15 PM EDT Office Visit Gastroenterology - 299 [address] [facility] [address] [place] [address] Zoe Mccarty NP [address] [facility] [address] [place] [address] Health Maintenance Due Date Last Done Comments [...] (2 - Td or Tdap) 02/05/2034 02/06/2024 RSV Immunization Adult Patients (1 - 1-dose 75+ series) 2046 HIB Vaccines Aged Out No longer eligi [...] Procedure Name Priority Date/Time Associated Diagnosis Comments US ABDOMEN LIMITED Routine 12/04/2024 10 :15 AM EDT Epigastric pain EGD Routine 11/03/2024 9:58 AM EDT Epigastric pain Gastroesophageal reflux disease without esophagitis TISSUE EXAM Routine 11/03/2024 9:54 AM EDT Epigastric pain Gastroesophageal reflux disease without esophagitis COLONOSCOPY Routine 10/11/2021 12:39 PM EDT from Last 3 Months or Most Recently Relevant to Health Maintenance Results * US Abdomen Limited (12/04/2024 10:15 AM EDT) Anatomical Region Laterality Modality Body Ultrasound 12/04/2024 10:2 7 AM EDT Impressions 12/04/2024 10:32 AM EDT Echogenic liver which attenuates sound greater than expected. Fatty change and/or fibrosis may be present. There is no ascites. There are at least 2 focal liver lesions. These are not simple cysts. Although hemangioma could give this appearance malignancy cannot be excluded. If there are no old studies for comparison further evaluation is warranted. Given the underlying chronic liver disease a multiphasic MRI or multiphasic CT using liver mass protocol should be considered. -------- FINAL REPORT -------- Dictated By: Clyde Gomes Dictated Date: 12/04/2024 10:27 ET Assigned Physician: Clyde Gomes Reviewed and Electronically Signed By: Clyde Gomes Signed Date: 12/04/2024 10:32 ET Workstation ID: [id number] Transcribed By: Self Edit Transcribed Date: 12/04/2024 10:27 ET Narrative 12/04/2024 10:32 AM EDT EXAMINATION: ABDOMEN ULTRASOUND, LIMITED CLINICAL INFORMATION: Epigastric pain. Evaluate for biliary cause. COMPARISON: None. TECHNIQUE: Ultrasound of the right upper quadrant FINDINGS: QUALITY: Bowel obscures some of the anatomy. The liver attenuates sound greater than expected. LI - RADS visualization score = Visualization B: Moderate limitations ELY for visualization scoring: A - Minimal limitations-unlikely to meaningfully affect sensitivity B - Moderate limitations-limitations may obscure small masses C - Severe limitations-limitations significantly lowers sensitivity for focal liver lesions PANCREAS: Most of the pancreas was obscured. Some of the pancreatic neck and body are visualized without a definite abnormality. ABDOMINAL AORTA/IVC: Portions of the IVC visualized without a definite abnormality. LIVER: The right lobe of the liver measures 15.4 cm. The liver contour appears smooth. There is diffuse increased hepatic echogenicity. There is obscuration of the portal tracts. The liver attenuates sound crater than expected. There is a fairly circumscribed slightly heterogeneous oval hypoechoic mass in the left lobe of the liver which measures 3.4 cm. There is posterior enhancement. No internal color signal. There is a fairly circumscribed hypoechoic solid appearing lesion in the right lobe of the liver likely hepatic segment 7. This measures approximately 2.0 cm. There is at least some posterior enhancement. BILIARY: The gallbladder is fluid-filled. No cholelithiasis, gallbladder wall thickening, pericholecystic fluid or biliary dilation. COMMON BILE DUCT: The common duct measures 0.3 cm which is within normal limits. GALLBLADDER TENDERNESS: There is no reported tenderness to transducer pressure over the gallbladder. KIDNEYS: Right renal length: 11.7 cm in greatest length Left renal length: Not examined. There is no dilation of the intrarenal collecting system in the right kidney. There is no suspicious focal lesion demonstrated in the right kidney. There is no shadowing calculus demonstrated in the right kidney. FLUID: No intraperitoneal fluid demonstrated in the upper abdomen Procedure Note Clyde Gomes MD - 12/04/2024 EXAMINATION: ABDOMEN ULTRASOUND, LIMITED CLINICAL INFORMATION: Epigastric pain. Evaluate for biliary cause. COMPARISON: None. TECHNIQUE: Ultrasound of the right upper quadrant FINDINGS: QUALITY: Bowel obscures some of the anatomy. The liver attenuates soundgreater than expected. LI - RADS visualization score = Visualization B: Moderate limitations ELY for visualization scoring: A - Minimal limitations-unlikely to meaningfully affect sensitivity B - Moderate limitations-limitations may obscure small masses C - Severe limitations-limitations significantly lowers sensitivity forfocal liver lesions PANCREAS: Most of the pancreas was obscured. Some of the pancreatic neckand body are visualized without a definite abnormality. ABDOMINAL AORTA/IVC: Portions of the IVC visualized without a definiteabnormality. LIVER: The right lobe of the liver measures 15.4 cm. The liver contour appears smooth. There is diffuse increased hepatic echogenicity. There is obscuration ofthe portal tracts. The liver attenuates sound crater than expected. There is a fairly circumscribed slightly heterogeneous oval hypoechoicmass in the left lobe of the liver which measures 3.4 cm. There isposterior enhancement. No internal color signal. There is a fairly circumscribed hypoechoic solid appearing lesion in theright lobe of the liver likely hepatic segment 7. This measuresapproximately 2.0 cm. There is at least some posterior enhancement. BILIARY: The gallbladder is fluid-filled. No cholelithiasis, gallbladderwall thickening, pericholecystic fluid or biliary dilation. COMMON BILE DUCT: The common duct measures 0.3 cm which is within normallimits. GALLBLADDER TENDERNESS: There is no reported tenderness to transducerpressure over the gallbladder. KIDNEYS: Right renal length: 11.7 cm in greatest length Left renal length: Not examined. There is no dilation of the intrarenal collecting system in the rightkidney. There is no suspicious focal lesion demonstrated in the right kidney. There is no shadowing calculus demonstrated in the right kidney. FLUID: No intraperitoneal fluid demonstrated in the upper abdomen IMPRESSION: Echogenic liver which attenuates sound greater than expected. Fatty changeand/or fibrosis may be present. There is no ascites. There are at least 2 focal liver lesions. These are not simple cysts. Although hemangioma could give this appearance malignancy cannot beexcluded. If there are no old studies for comparison further evaluation iswarranted. Given the underlying chronic liver disease a multiphasic MRI ormultiphasic CT using liver mass protocol should be considered. -------- FINAL REPORT -------- Dictated By: Clyde Gomes Dictated Date: 12/04/2024 10:27 ET Assigned Physician: Clyde Gomes Reviewed and Electronically Signed By: Clyde Gomes Signed Date: 12/04/2024 10:32 ET Workstation ID: [id number] Transcribed By: Self Edit Transcribed Date: 12/04/2024 10:27 ET us Karla CHAPARRO IMG US PROCEDURES Final Result * EGD Anesthesia - [facility]; [facility] [...] previously scheduled. Narrative 11/03/2024 10:[address] [facility] GI Patient Name: Rudy Martinez Procedure Date: [...] was minimal. Procedure Code(s): --- Professional --- 39249, Esophagogastroduodenoscopy, flexible, transoral; with biopsy, single or multiple Diagnosis Code(s): --- Professional --- K21.9, Gastro-esophageal reflux disease without esophagitis CPT copyright 2020 [employer]. All rights reserved. The codes documented in this report are preliminary and upon scudding inspector review may be revised to meet current compliance requirements. Mehdi Blanc MD 11/03/2024 10:01:17 AM This report has been signed electronically.Mehdi Blanc MD Number of Addenda: 0 Note Initiated On: 11/03/2024 9:45 AM Scope In: Scope Out: Endoscopy Department at [facility] - [address] [place] [id number] Procedure Note Mehdi Blanc MD - 11/03/2024 [facility] GI Patient Name: Rudy Martinez Procedure Date: [...] was minimal. Procedure Code(s): --- Professional --- 15951, Esophagogastroduodenoscopy, flexible, transoral; with biopsy, single or multiple Diagnosis Code(s): --- Professional --- K21.9, Gastro-esophageal reflux disease without esophagitis CPT copyright 2020 [employer]. All rights reserved. The codes documented in this report are preliminary and upon scudding inspector reviewmay be revised to meet current compliance requirements. Mehdi Blanc MD 11/03/2024 10:01:17 AM This report has been signed electronically.Mehdi Blanc MD Number of Addenda: 0 Note Initiated On: 11/03/2024 9:45 AM Scope In: Scope Out: Endoscopy Department at [facility] - [address] [place] [phone] IMPRESSION: - Z-line regular, 40 cm from [...] Immunohistochemistry: Helicobacter pylori: negative. 12:18 PM EDT [facility] Addendum electronically signed by Huong [...] not morphologically apparent on H&E stained slide. 09/04/202 5 12:18 PM EDT [facility] Gross Description A. Small Intestine, Duodenum, [...] pieces, multiple levels. TS 12:18 PM EDT [facility] Disclaimer NOTE: The immunohistochemical tests and in situ hybridization tests were developed and their performance characteristics were determined by [facility]. They have not been cleared [...] fixed and paraffin embedded. 12:18 PM EDT [facility] Tissue Duodenal structure / Unknown 11/03/2024 9:54 AM EDT 11/03/2024 11:28 AM EDT Tissue specimen (specimen) Pyloric antrum structure / Unknown 11/03/2024 9:55 AM EDT 11/03/2024 11:28 AM EDT Mehdi Blanc MD LAB PATHOLOGY ORDERABLES Edit ed Result - Final [facility] [address] [place] [address], * COLONOSCOPY (10/11/2021 12:39 PM EDT) Anatomical Region Laterality Modality Endoscopy us Historical Provider MD GUTIERREZ~PROCEDURE ORDERABLES F inal Result from Last 3 Months or Most Recently Relevant to Health Maintenance [facility] Care Teams Distillation Operator Helper Relationship Specialty Start Date End Date Vickie Monte PA [facility] [address] [place] [address] PCP - General Physician Structural Metal Worker 01/29/24
--- OUTSIDE RECORDS SUMMARY | 2025-01-14 18:30 | XMS_ITS | Clinical Summary ---
Author Organization [facility] Address [address] [place] [address] Care Team Providers Care Yoker Name Role Phone Larry Marin MD Primary Care Provider [phone] Allergies No known active allergies Medications Medication [...] age to complete this topic Care Teams Yoker Relationship Specialty Start Date End Date Larry Marin MD [address] [place] [address] PCP - General Internal Medicine 04/23/19
== END 2025-01-14 15:24 | disposition home or self-care (01) ==
LOC: HO.BBR 15:23
PROVIDERS: PCP Internal Medicine; Visit Provider Internal Medicine Gastroenterology
DX: Z13.89 Encounter for screening for other disorder (principal)